=== PATIENT | male | born 1975 | race Caucasian/White ===

== ENCOUNTER 2022-05-13 14:16 | Inpatient (IN) | payer BC ==
--- NOTE | 2022-05-13 15:01 | RAD REPORT ---
EXAM DESCRIPTION: CT - Head Brain Wo Cont - 05/13/2022 2:50 pm CLINICAL HISTORY: Visual disturbance COMPARISON: None. TECHNIQUE: Computed axial tomography of the head was obtained. IV contrast was not requested. All CT scans are performed using dose optimization technique as appropriate and may include automated exposure control or mA/KV adjustment according to patient size. FINDINGS: An intracranial bleed is not seen . The ventricles are normal in caliber. No significant hypodense areas within the brain visualized No extra-axial fluid collection is noted. Fluid within the sinuses/ mastoids is not seen. IMPRESSION: No acute intracranial abnormality is seen. If patient's symptoms persist MRI of the bra in would be recommended.
[2022-05-13] MEDS ORDERED: AMLODIPINE 10 MG TAB ONE (15:09)
[2022-05-13 15:13] LABS: Absolute Lymphocytes (CBC) 1.5 K/uL (0.7-4.9); Lymphocytes % 14.1 % (15.3-44.8); MCV 87.9 fL (80-100); RBC Red Blood Cell Count 5.12 M/uL (4.33-5.43)
[2022-05-13 15:16] LABS: Protime INR 1.03
[2022-05-13 15:35] LABS: Albumin 3.4 g/dL (3.4-5.0); Bilirubin Direct 0.1 mg/dL (0-0.2); Bilirubin Total 0.6 mg/dL (0.2-1.0); Magnesium 2.2 mg/dL (1.6-2.4); Protein, Total 7.1 g/dL (6.4-8.2)
[2022-05-13 15:37] LABS: Troponin High Sensitivity 82.5 pg/mL (<58.9)
--- NOTE | 2022-05-13 16:14 | ER ---
Nurse's Notes [facility] Name: Clem Amanda Age: 46 yrs Sex: Male : 1975 Arrival Date: 05/13/2022 Time: 14:18 Bed 16 Private MD: Diagnosis: Hypertension with endorgan injury Presentation: 05/13 14:33 Chief complaint: Patient states: he was at the eye dr and was sent here due to high ap3 blood pressure. patient states his blood pressure was 216/140. patient doesn't have a pcp, and hasn't had his blood pressure checked "in years" Patient denies headache, nausea, vomiting. Patient states that 05/07/2022 he started not being able to focus with his eyes, and that is why he was at the eye dr. 14:39 Coronavirus screen: At this time, the client does not indicate any symptoms associated ap3 with coronavirus-19. Ebola Screen: No symptoms or risks identified at this time. Initial Sepsis Screen: Does the patient meet any 2 criteria? No. Patient's initial sepsis screen is negative. Does the patient have a suspected source of infection? No. Patient's initial sepsis screen is negative. Risk Assessment: Do you want to hurt yourself or someone else? Patient reports no desire to harm self or others. Onset of symptoms was May 07, 2022. 14:39 Acuity: CHANCE 2 ap3 14:39 Method Of Arrival: Ambulatory ap3 Triage Assessment: 14:40 General: Appears in no apparent distress. Behavior is calm, cooperative, appropriate ap3 for age. Pain: Denies pain. EENT: Reports changes in vision. not being able to focus. Neuro: Level of Consciousness is awake, alert, obeys commands, Oriented to person, place, time, situation, Moves all extremities. Gait is steady, Speech is normal. Cardiovascular: Patient's skin is warm and dry. Respiratory: Airway is patent Respiratory effort is even, unlabored, Respiratory pattern is regular, symmetrical. Historical: - Allergies: 14:39 No Known Allergies; ap3 - Home Meds: 14:39 None [Active]; ap3 - PMHx: 14:39 None; ap3 - Immunization history:: Client reports having NOT received the Covid vaccine. - Social history:: Smoking status: Patient denies any tobacco usage or history of. Screenin:41 Abuse screen: Denies threats or abuse. Nutritional screening: No deficits noted. ap3 Tuberculosis screening: No symptoms or risk factors identified. 14:41 [facility] ED Fall Risk Assessment (Adult) History of falling in the last 3 months, ap3 including since admission No falls in past 3 months (0 pts). Assessment: 15:16 General: Appears in no apparent distress. comfortable, Behavior is calm, cooperative, ko1 appropriate for age. Pain: Denies pain. Neuro: No deficits noted. Cardiovascular: Parent/caregiver reports patient has had high blood pressure. Respiratory: No deficits noted. GI: No deficits noted. : No deficits noted. EENT: No deficits noted. Derm: No deficits noted. Musculoskeletal: No deficits noted. 19:00 General: Appears in no apparent distress. comfortable, obese, well groomed, well pf1 developed, Behavior is calm, cooperative, appropriate for age, quiet. 19:00 General: Patient stated went to the eye doctor today and was sent to the ER due to pf1 elevated BP,onset today.. Pain: Denies pain. Neuro: No deficits noted. Level of Consciousness is awake, alert, obeys commands, Oriented to person, place, time, situation. Cardiovascular: No deficits noted. Capillary refill < 3 seconds. Respiratory: No deficits noted. Airway is patent Respiratory effort is even, unlabored, Respiratory pattern is regular, symmetrical. GI: No deficits noted. No signs and/or symptoms were reported involving the gastrointestinal system. : No deficits noted. No signs and/or symptoms were reported regarding the genitourinary system. EENT: No deficits noted. No signs and/or symptoms were reported regarding the EENT system. Derm: No deficits noted. No signs and/or symptoms reported regarding the dermatologic system. Musculoskeletal: No deficits noted. No signs and/or symptoms reported regarding the musculoskeletal system. Vital Signs: 14:33 BP 227 / 131; Pulse 87; Temp 98.8; Pulse Ox 97% ; Height 6 ft. 4 in. (193.04 cm); ap3 14:40 Weight 162.9 kg; ap3 15:13 BP 227 / 128; Pulse 79; Resp 18; Pulse Ox 95% on R/A; ko1 15:19 BP 216 / 127; Pulse 82; Pulse Ox 96% ; ko1 16:55 BP 226 / 131; Pulse 82; Pulse Ox 98% on R/A; ko1 17:00 BP 228 / 126; Pulse 74; Pulse Ox 97% ; ko1 17:15 BP 195 / 126; Pulse 77; Pulse Ox 99% ; ko1 17:20 BP 221 / 128; ko1 18:15 BP 202 / 105; Pulse 86; ko1 18:30 BP 191 / 106; Pulse 87; Pulse Ox 97% ; ko1 18:45 BP 185 / 107; Pulse 85; Pulse Ox 99% on R/A; ko1 18:55 BP 185 / 107; ko1 19:10 BP 198 / 104; pf1 14:40 Body Mass Index 43.71 (162.90 kg, 193.04 cm) ap3 17:00 started cardene 5mg/hr ko1 17:20 increased cardene to 7.5 mg/hr ko1 18:15 increased cardene to 10mg/hr ko1 18:45 increased cardene to 12.5mg/hr ko1 19:10 increased cardene to 15mg/hr pf1 ED Course: 14:18 Patient arrived in ED. rg4 14:29 Toñito Landrum PA is PHCP. jmm 14:29 Gibson Michael MD is Attending Physician. jmm 14:39 Triage completed. ap3 14:40 Shawanda Dougherty, RN is Primary Nurse. ko1 14:41 Arm band placed on right wrist. ap3 14:[address] via stretcher. ko1 14:45 Patient has correct armband on for positive identification. Bed in low position. Call ko1 light in reach. Side rails up X 1. Client placed on continuous cardiac and pulse oximetry monitoring. NIBP monitoring applied. patient monitor on. 14:51 CT Head Brain wo Cont In Process Unspecified. EDMS 14:[address]. ko1 15:00 Inserted saline lock: 20 gauge in left antecubital area, using aseptic technique. Blood ko1 collected. 15:04 Basic Metabolic Panel Sent. ko1 15:04 CBC with Diff Sent. ko1 15:04 LFT's Sent. ko1 15:04 Magnesium Sent. ko1 15:04 NT PRO-BNP Sent. ko1 15:04 PT-INR Sent. ko1 15:04 Troponin HS Sent. ko1 15:16 No provider procedures requiring assistance completed. ko1 16:12 Tyson Ramos MD is Hospitalizing Provider. alexm Administered Medications: 15:09 Drug: Norvasc (amlodipine) 10 mg Route: PO; ko1 17:00 Drug: niCARdipine 5 mg/hr Route: IV; Rate: calculated rate; Site: left antecubital; ko1 17:48 Follow up: Response: Blood pressure is unchanged; Rate change 7.5 mg/hr ko1 18:33 Follow up: Response: Blood pressure is lowered; Rate change 10 mg/hr ko1 18:55 Follow up: BP 185 / 107; Rate change 12.5 mg/hr ko1 19:15 Follow up: Rate change 15 mg/hr pf1 Medication: 15:16 VIS not applicable for this client. ko1 Outcome: 16:13 Decision to Hospitalize by Provider. everardo 05/14 21:46 Patient left the ED. aa9 Signatures: Dispatcher [employer] EDMS Toñito Landrum PA PA jm Charity Stiles rg4 Amairani Barr RN RN ap3 Louise Lezama RN RN aa9 Shawanda Dougherty, RN RN ko1 Gabi isaac, SAL RN pf1 Corrections: (The following items were deleted from the chart) 05/13 18:59 17:00 BP 228 / 126; Pulse 74bpm; Pulse Ox 97%; ko1 ko1 18:59 17:20 BP 221 / 128; ko1 ko1 18:59 18:15 BP 202 / 105; Pulse 86bpm; ko1 ko1
--- NOTE | 2022-05-13 16:14 | EDPHYS ---
Physician Documentation [facility] Name: Clem Amanda Age: 46 yrs Sex: Male : 1975 Arrival Date: 05/13/2022 Time: 14:18 Bed 16 Private MD: ED Physician Gibson Michael HPI: 05/13 14:36 This 46 yrs old Male presents to ER via Ambulatory with complaints of High Blood jmm Pressure. 14:36 Onset: The symptoms/episode began/occurred at an unknown time. Modifying factors: The jmm symptoms are aggravated by activity, The symptoms are alleviated by. Is a 46-year-old male with no known chronic medical conditions presents emerged part with complaints of elevated blood pressure which was measured in clinic today. Patient was seen by ophthalmology involved to go to the ED for further evaluation. Patient denies chest pain, headache, shortness of breath.. Historical: - Allergies: 14:39 No Known Allergies; ap3 - Home Meds: 14:39 None [Active]; ap3 - PMHx: 14:39 None; ap3 - Immunization history:: Client reports having NOT received the Covid vaccine. - Social history:: Smoking status: Patient denies any tobacco usage or history of. ROS: 14:36 Constitutional: Negative for fever, chills, and weight loss, Cardiovascular: Negative jmm for chest pain, palpitations, and edema, Respiratory: Negative for shortness of breath, cough, wheezing, and pleuritic chest pain. 14:36 All other systems are negative. Exam: 14:36 Constitutional: This is a well developed, well nourished patient who is awake, alert, jmm and in no acute distress. Head/Face: atraumatic. Eyes: EOMI, no conjunctival erythema appreciated ENT: Moist Mucus Membranes Neck: Trachea midline, Supple Chest/axilla: Normal chest wall appearance and motion. Cardiovascular: Regular rate and rhythm. No edema appreciated Respiratory: Normal respirations, no respiratory distress appreciated Abdomen/GI: Non distended Back: Normal ROM Skin: General appearance color normal MS/ Extremity: Moves all extremities, no obvious deformities appreciated, no edema noted to the lower extremities Neuro: Awake and alert Psych: Behavior is normal, Mood is normal, Patient is cooperative and pleasant Vital Signs: 14:33 BP 227 / 131; Pulse 87; Temp 98.8; Pulse Ox 97% ; Height 6 ft. 4 in. (193.04 cm); ap3 14:40 Weight 162.9 kg; ap3 15:13 BP 227 / 128; Pulse 79; Resp 18; Pulse Ox 95% on R/A; ko1 15:19 BP 216 / 127; Pulse 82; Pulse Ox 96% ; ko1 16:55 BP 226 / 131; Pulse 82; Pulse Ox 98% on R/A; ko1 17:00 BP 228 / 126; Pulse 74; Pulse Ox 97% ; ko1 17:15 BP 195 / 126; Pulse 77; Pulse Ox 99% ; ko1 17:20 BP 221 / 128; ko1 18:15 BP 202 / 105; Pulse 86; ko1 18:30 BP 191 / 106; Pulse 87; Pulse Ox 97% ; ko1 18:45 BP 185 / 107; Pulse 85; Pulse Ox 99% on R/A; ko1 18:55 BP 185 / 107; ko1 19:10 BP 198 / 104; pf1 14:40 Body Mass Index 43.71 (162.90 kg, 193.04 cm) ap3 17:00 started cardene 5mg/hr ko1 17:20 increased cardene to 7.5 mg/hr ko1 18:15 increased cardene to 10mg/hr ko1 18:45 increased cardene to 12.5mg/hr ko1 19:10 increased cardene to 15mg/hr pf1 MDM: 14:36 Patient medically screened. hitesh 16:11 Data reviewed: vital signs, nurses notes. Counseling: I had a detailed discussion with [facility] the patient and/or guardian regarding: the historical points, exam findings, and any diagnostic results supporting the discharge/admit diagnosis, lab results, radiology results, the need for further work-up and treatment in the hospital. ED course: I discussed the patient with ROHINI Palacios, whom accepted the patient to Dr. Ramos's service. . 05/13 14:39 Order name: Basic Metabolic Panel; Complete Time: 15:39 [facility] 05/13 14:39 Order name: CBC with Diff; Complete Time: 15:23 [facility] 05/13 14:39 Order name: LFT's; Complete Time: 15:39 [facility] 05/13 14:39 Order name: Magnesium; Complete Time: 15:39 [facility] 05/13 14:39 Order name: NT PRO-BNP; Complete Time: 15:39 jmm 05/13 14:39 Order name: PT-INR; Complete Time: 15:23 jmm 05/13 14:39 Order name: Troponin HS; Complete Time: 15:39 jmm 05/13 16:08 Order name: SARS RAPID; Complete Time: 17:02 jmm 05/13 20:15 Order name: Phosphorus; Complete Time: 09:04 EDMS 05/13 20:15 Order name: Creatine Phosphokinase; Complete Time: 09:04 EDMS 05/13 20:15 Order name: NT PRO-BNP; Complete Time: 09:04 EDMS 05/13 20:15 Order name: T4 Free; Complete Time: 09:04 EDMS 05/13 20:15 Order name: Magnesium; Complete Time: 09:04 EDMS 05/13 20:15 Order name: Thyroid Stimulating Hormone; Complete Time: 09:04 EDMS 05/13 14:39 Order name: EKG; Complete Time: 14:40 m 05/13 14:39 Order name: Cardiac monitoring; Complete Time: 15:04 [facility] 05/13 14:39 Order name: EKG - Nurse/Tech; Complete Time: 15:09 m 05/13 14:39 Order name: IV Saline Lock; Complete Time: 15:03 m 05/13 14:39 Order name: Labs collected and sent; Complete Time: 15:04 m 05/13 14:39 Order name: O2 Per Protocol; Complete Time: 14:41 m 05/13 14:39 Order name: CT Head Brain wo Cont; Complete Time: 15:10 m 05/13 17:21 Order name: CONS Physician Consult EDMS 05/13 20:58 Order name: Troponin High Sensitivity; Complete Time: 09:04 EDMS 05/14 03:02 Order name: CBC with Automated Diff; Complete Time: 09:04 EDMS 05/14 03:18 Order name: Basic Metabolic Panel; Complete Time: 09:04 EDMS 05/14 03:18 Order name: Lipid Profile; Complete Time: 09:04 EDMS 05/14 03:23 Order name: Troponin High Sensitivity; Complete Time: 09:04 EDMS 05/14 09:41 Order name: Troponin High Sensitivity; Complete Time: 09:45 EDMS 05/13 14:39 Order name: O2 Sat Monitoring; Complete Time: 14:42 [facility] 05/13 16:26 Order name: Misc. Order: systolic goal of 160-180; Complete Time: 18:42 [facility] Administered Medications: 15:09 Drug: Norvasc (amlodipine) 10 mg Route: PO; ko1 17:00 Drug: niCARdipine 5 mg/hr Route: IV; Rate: calculated rate; Site: left antecubital; ko1 17:48 Follow up: Response: Blood pressure is unchanged; Rate change 7.5 mg/hr ko1 18:33 Follow up: Response: Blood pressure is lowered; Rate change 10 mg/hr ko1 18:55 Follow up: BP 185 / 107; Rate change 12.5 mg/hr ko1 19:15 Follow up: Rate change 15 mg/hr pf1 Disposition Summary: 05/13/22 16:13 Hospitalization Ordered Hospitalization Status: Inpatient Admission [facility] Provider: Tyson Ramos Condition: Stable [facility] Problem: new [facility] Symptoms: are unchanged [facility] Bed/Room Type: [facility] Location: Intensive Care Unit(05/14/22 20:36) Room Assignment: 3-(05/14/22 20:36) cg Diagnosis - Hypertension with endorgan injury [facility] Forms: - Medication Reconciliation Form [facility] - SBAR form [facility] Signatures: Dispatcher [employer] EDGibson Hays MD MD cha Mickail, Joel, PA PA [facility] Earnestine Stiles, RN Amairani Crews RN SAL [email or web address] Aurora Lay RN RN eb1 Shawanda Dougherty RN RN Gabi arias RN pf1 Corrections: (The following items were deleted from the chart) 16:24 16:22 Misc. Order ordered. [facility] 16:25 16:13 Telemetry/MedSurg (Inpatient) [facility] 16:25 16:13 [facility] 17:53 14:36 Is a 46-year-old male with no known chronic medical conditions presents emerged [facility] with complaints of elevated blood pressure which was measured in clinic today. Patient was seen by ophthalmology involved to go to the ED for further evaluation. Patient has chest pain, headache, shortness of breath.. [facility] 22:19 16:25 Intensive Care Unit jmm eb1 22:19 16:25 jmm eb1 05/14 20:36 04 22:19 [facility] ER [facility] eb1 cg 05/14 20:36 05[facility]13 [facility]
[2022-05-13] MEDS ORDERED: Nicardipine/NS 25 MG/250 ML KIT IV ONE ×2 (16:56→21:34)
[2022-05-13 17:01] LABS: SARS-CoV-2 Antigen Rapid Res Negative (Negative)
[2022-05-13] MEDS ORDERED: ACETAMINOPHEN 325 MG TABLET PO PRN (17:19)
[2022-05-13] MEDS ORDERED: HYDROCODONE/APAP 5/325 MG TAB PO PRN (17:19)
[2022-05-13] MEDS ORDERED: ONDANSETRON 4 MG/2 ML VIAL IV PRN (17:29)
--- NOTE | 2022-05-13 17:35 | P.HP ---
Certification for Inpatient Patient History Date of Service: 05/14/22 Reason for admission: Elevated blood pressure History of Present Illness: Patient is a 46-year-old male with a past medical history significant for diabetes who presents with complaint of elevated blood pressure. Patient reported that he went to see his network contract manager due to blurry vision and when his blood pressure was checked his SBP was noted to be in the 200s. Patient was instructed to come to the ER. Patient denies any other signs and symptoms. Symptoms are aggravated or relieved by nothing. Patient decided to present to the ER as directed - Past Medical/Surgical History -: Obesity Past Surgical History: Reviewed- Non-Contributory - Social History Smoking Status: Never smoker Alcohol use: Yes CD- Drugs: No Caffeine use: No Place of Residence: Home <SpikeninaDarci suarezcaridad Suarez - Last Filed: 05/14/22 02:33> Date of Service: 05/14/22 <Tyson Ramos - Last Filed: 05/14/22 17:07> Allergies No Known Allergies Allergy (Verified 05/13/22 17:40) Review of Systems General: Unremarkable Eyes: Other (Blurry Vision ) ENT: Unremarkable Respiratory: Unremarkable Cardiovascular: Unremarkable Gastrointestinal: Unremarkable Genitourinary: Unremarkable Musculoskeletal: Unremarkable Integumentary: Unremarkable Neurological: Unremarkable Lymphatics: Unremarkable <SpikeninaMichel suarez Erick - Last Filed: 05/14/22 02:33> Physical Examination - Physical Exam General: Alert, In no apparent distress, Oriented x3, Cooperative HEENT: Atraumatic, PERRLA, Mucous membr. moist/pink, EOMI, Sclerae nonicteric Neck: Supple, 2+ carotid pulse no bruit, No LAD, Without JVD or thyroid abnormality Respiratory: Clear to auscultation bilaterally, Normal air movement Cardiovascular: No edema, Regular rate/rhythm, Normal S1 S2 Capillary refill: <2 Seconds Gastrointestinal: Normal bowel sounds, Soft and benign, No tenderness Musculoskeletal: No clubbing, No contractures, No tenderness Integumentary: No rashes, No significant lesion, No tenderness/swelling Neurological: Normal speech, Normal tone, Normal affect Lymphatics: No axilla or inguinal lymphadenopathy - Studies Laboratory Data (last 24 hrs) 05/13/22 15:00: PT 11.3, INR 1.03 05/13/22 15:00: WBC 10.90, Hgb 15.6, Hct 45.0, Plt Count 140 L 05/13/22 15:00: Sodium 140, Potassium 4.0, BUN 34 H, Creatinine 1.60 H, Glucose 190 H, Magnesium 2.2, Total Bilirubin 0.6, AST 24, ALT 45, Alkaline Phosphatase 82 <Michel Quinn - Last Filed: 05/14/22 02:33> - Studies Laboratory Data (last 24 hrs) 05/14/22 02:20: Sodium 140, Potassium 3.8, BUN 29 H, Creatinine 1.42 H, Glucose 134 H, Triglycerides 99, Cholesterol 193, HDL Cholesterol 39 L, Cholesterol/HDL Ratio 4.95 05/14/22 02:20: WBC 10.90, Hgb 14.8, Hct 43.1, Plt Count 138 L 05/13/22 19:39: Phosphorus 2.7, Magnesium 2.4 <Tyson Ramos - Last Filed: 05/14/22 17:07> Assessment and Plan - Plan --Hypertensive emergency. Patient started on nicardipine drip. Cardiology consulted. Echocardiogram pending. Telemetry to monitor for any significant arrhythmia. We will await further recommendation from assistant housekeeping manager. -- Elevated troponin. We will trend troponin levels. Joint Sealer on board. Telemetry to monitor for any significant arrhythmia. --Elevated BNP. Echocardiogram pending to assess cardiac structures and functions. Further management per assistant housekeeping manager. --CKD 3A. Baseline functions unknown. We will continue to monitor renal functions. --Class III obesity. Likely secondary to excess calories intake. Patient counseled on weight reduction, diet and exercise therapy. --DVT prophylaxis with Lovenox subQ. Discharge Plan: Home - Advance Directives Does patient have a Living Will: No Does patient have a Durable POA for Healthcare: No - Code Status/Comfort Care Code Status Assessed: Yes Physician Review: Patient Assessed, Agree with Above Assessment and Plan Critical Care: No <Michel Quinn - Last Filed: 05/14/22 02:33> Physician Review: Patient Assessed, Agree with Above Assessment and Plan <Tyson Ramos - Last Filed: 05/14/22 17:07>
[2022-05-13] MEDS ORDERED: ASPIRIN 81 MG CHEWABLE TABLET PO ONE (18:00)
[2022-05-13] MEDS ORDERED: Nicardipine in Saline, Iso-Osm 20 MG/200 ML IV.SOLN. IV SCH (18:00)
[2022-05-13] MEDS: NICARDIPINE HCL 25 MG in NA CHLORIDE 0.9% 240 ML IV PRN (19:00)
[2022-05-13 20:15] LABS: Magnesium 2.4 mg/dL (1.6-2.4); Phosphorus 2.7 mg/dL (2.5-4.9); Thyroid Stimulating Hormone 2.33 uIU/mL (0.358-3.740)
[2022-05-13] MEDS: ENOXAPARIN 40 MG/0.4 ML SQ SCH (21:00)
[2022-05-13] MEDS ORDERED: carvediloL 6.25 MG TAB PO SCH ×2 (21:20→22:30)
[2022-05-13] MEDS ORDERED: carvediloL 6.25 MG TAB ONE (21:33)
[2022-05-13] MEDS ORDERED: ENOXAPARIN 40 MG/0.4 ML SQ ONE (21:34)
[2022-05-13] MEDS ORDERED: carvediloL 6.25 MG TAB PO ONE (21:46)
[2022-05-14] MEDS ORDERED: Nicardipine/NS 25 MG/250 ML KIT IV ONE ×6 (02:02→22:38)
[2022-05-14 03:00] LABS: Absolute Lymphocytes (CBC) 1.9 K/uL (0.7-4.9); Hematocrit 43.1 % (39.6-49.0); Lymphocytes % 17.1 % (15.3-44.8); MCV 88.2 fL (80-100); MPV 7.9 fL (7.6-11.3); RBC Red Blood Cell Count 4.89 M/uL (4.33-5.43)
[2022-05-14 03:18] LABS: Potassium 3.8 mmol/L (3.5-5.1)
[2022-05-14] MEDS: carvediloL 12.5 MG TAB PO SCH ×2 (08:00→16:18)
[2022-05-14] MEDS: NICARDIPINE HCL 25 MG in NA CHLORIDE 0.9% 240 ML IV PRN ×4 (08:30→23:10)
[2022-05-14] MEDS ORDERED: carvediloL 6.25 MG TAB ONE ×2 (08:32→16:20)
[2022-05-14] MEDS ORDERED: ASPIRIN 81 MG CHEWABLE TABLET ONE (08:32)
[2022-05-14] MEDS ORDERED: ENOXAPARIN 40 MG/0.4 ML SQ ONE (08:32)
[2022-05-14] MEDS: ASPIRIN 81 MG CHEWABLE TABLET PO SCH (08:57)
[2022-05-14] MEDS: ENOXAPARIN 40 MG/0.4 ML SQ SCH (08:57)
[2022-05-14] MEDS ORDERED: INFLUENZA VACCINE (for 6+ mo) 0.5 ML DOSE IMVAC ONE (09:00)
[2022-05-14] MEDS: AMLODIPINE 5 MG TAB PO SCH (12:26)
[2022-05-14] MEDS ORDERED: AMLODIPINE 5 MG TAB ONE (12:32)
--- NOTE | 2022-05-14 15:23 | EKG ---
Test Date: 2022-05-13 Test Time: 15:13:17 Fire Tender: SHARMIN MEASUREMENT RESULTS: Intervals: Rate: 79 DC: 176 QRSD: 98 QT: 396 QTc: 454 [place]: P: 53 DC: 176 QRS: 63 T: 193 INTERPRETIVE STATEMENTS: Normal sinus rhythm T wave abnormality, consider inferolateral ischemia Abnormal ECG No previous ECG available for comparison Electronically Signed On 05-14-22 15:21:20 ASPHALT PAVER OPERATOR by Venu Webster
--- NOTE | 2022-05-14 15:23 | EKG ---
Test Date: 2022-05-13 Test Time: 15:13:49 Garage Helper: SHARMIN MEASUREMENT RESULTS: Intervals: Rate: 81 NE: 176 QRSD: 100 QT: 394 QTc: 457 [place]: P: 61 NE: 176 QRS: 56 T: 195 INTERPRETIVE STATEMENTS: Normal sinus rhythm T wave abnormality, consider inferolateral ischemia Abnormal ECG Compared to ECG 05/13/2022 15:13:17 No significant changes Electronically Signed On 05-14-22 15:21:14 PRESCHOOL TEACHER AIDE by Venu Webster
--- NOTE | 2022-05-14 17:15 | P.PN ---
Subjective Date of Service: 05/14/22 Chief Complaint: Elevated blood pressure No acute events overnight. He was started on carvedilol and amlodipine, and his nicardipine drip is being down-titrated. He reports that he feels well overall. He reports that he has had blurry vision in his right eye. He saw his staff respiratory therapist yesterday, who reportedly told him that he has hypertensive retinopathy and has had a hemorrhage next to his optic disc. He denies any headaches or chest pain. Review of Systems 10-point ROS is otherwise unremarkable Eyes: Vision Change (right-eye ) Physical Examination - Vital Signs Temperature: 97 F Blood Pressure: 163/86 Pulse: 63 Respirations: 16 Pulse Ox (%): 98 - Physical Exam General: Alert, In no apparent distress, Oriented x3 HEENT: Atraumatic, Mucous membr. moist/pink, EOMI, Sclerae nonicteric Neck: JVD not distended Respiratory: Clear to auscultation bilaterally, Normal air movement Cardiovascular: No edema, Regular rate/rhythm, Normal S1 S2, No gallops, No rubs, No murmurs Gastrointestinal: Normal bowel sounds, Soft and benign, Non-distended, No tenderness, No rebound, No guarding Musculoskeletal: No clubbing Integumentary: No rashes Neurological: Normal speech, Cranial nerves 3-12 intact, Normal affect - Studies Laboratory Data (last 24 hrs) 05/14/22 02:20: Sodium 140, Potassium 3.8, BUN 29 H, Creatinine 1.42 H, Glucose 134 H, Triglycerides 99, Cholesterol 193, HDL Cholesterol 39 L, Cholesterol/HDL Ratio 4.95 05/14/22 02:20: WBC 10.90, Hgb 14.8, Hct 43.1, Plt Count 138 L 05/13/22 19:39: Phosphorus 2.7, Magnesium 2.4 Assessment And Plan - Plan # Hypertensive Emergency # 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 If patient's symptoms persist MRI of the brain would be recommended." - Consulted Cardiology and spoke with Dr. Webster - recommendations appreciated - Started on nicardipine drip with goal to reduce blood pressure ~20% every 24 hours - Started on carvedilol + amlodipine - titrate nicardipine as able # Suspected Type II Non-ST Segment Elevation Myocardial Infarction (Demand Ischemia) due to above - Evaluation thus far: - EKG: without reported STEMI criteria, trend - Serial troponin: 82.5 -> 98.2 -> 126.8 -> 79.9 - Ordered transthoracic echocardiogram - Management plan: - Consult Cardiology and spoke with Dr. Webster - recommendations appreciated - Recommends blood pressure control as outlined above # Suspected Acute Kidney Injury - Creatinine = 1.60 -> 1.42 (baseline creatinine unknown) - Urinalysis = pending - Monitor creatinine and urine output - If worsening, obtain renal ultrasound - Renally dose medications # Dyslipidemia - Started atorvastatin 10 mg qHS # Hyperglycemia # Morbid Obesity - BMI 43.7 kg/m2 - Ordered Hgb A1c - Lifestyle modifications Tyson Ramos M.D.
[2022-05-14] MEDS ORDERED: ACETAMINOPHEN 325 MG TABLET ONE (17:23)
--- NOTE | 2022-05-14 19:35 | CON ---
Date of Consultation: 05/14/2022 Reason For Consultation: Elevated blood pressure and hypertensive emergency. History Of Present Illness: This is a 46-year-old male with history of diabetes and hypertension who was not on medications. He was on medicines in the past and he lost weight, so stopped all medicati ons. He was sent by the flight line mechanic due to blurry vision. He was found to have bleeding on eye exam due to the hypertension. Blood pressure was above 200 systolic upon arrival. He has no symptom s as per report. Past Medical History: Diabetes, hypertension, obesity, and obstructive sleep apnea. Medications: Refer to reconciliation sheet for detailed list. Allergies: NO KNOWN DRUG ALLERGIES. Family History: No premature coronary artery disease or cancer. Social History: He does not smoke or drink. Does not use any drugs. Review of Systems: All systems reviewed and they were negative except for what is mentioned in HPI. Physical Examination: Vital Signs: Reviewed. Head And Neck: Pupils are equal and reactive to light. Intact eye movements. No JVD. No cervical lymphadenopathy. Neck is supple. Thyroid is not enlarged. Lungs: Clear to auscultation bilaterally. No rhonchi, wheezing, or crackles. No accessory muscle u se. Heart: Regular rate and rhythm. No extra sounds. Abdomen: Soft, nontender. Bowel sounds positive. No organomegaly. No masses or hernia. No rigidi ty or rebound. Extremities: 1+ edema bilaterally. No clubbing or cyanosis. Intact pulses. Skin: No rash. Neurologic: Alert, awake, and oriented x3. No acute deficits appreciated. Lymph Nodes: No cervical or axillary lymphadenopathy. Investigations: BUN 29, creatinine 1.42, and troponin peaked at 126 and trending down. Assessment/recommendation: 1.Elevated troponin. This is demand due to his severe hypertension. Recommend aggressive blood pre ssure control. Agree with Norvasc and Coreg and the patient might benefit from diuretics. Re-evalua te his labs tomorrow. If his creatinine continues to be stable, then Lasix will be recommended as th e patient is fluid overloaded. 2.Hypertensive crisis. Blood pressure is improving. Continue current management. Titrate him off the nicardipine slowly while introducing oral medications. 3.Lower extremity edema, probably diastolic congestive heart failure. Await on echocardiogram. SR/MODL Voice ID: [id number] Report ID: [id number]
[2022-05-14] MEDS ORDERED: ATORVASTATIN 20 MG TAB ONE (20:58)
[2022-05-14] MEDS: ATORVASTATIN 10 MG TAB PO SCH (21:00)
[2022-05-14 23:43] LABS: Specific Gravity 1.016 (1.005-1.030); Urine Bacteria <20 /HPF (<20); Urine Bilirubin NEGATIVE (Negative); Urine Blood Negative (Negative); Urine Clarity Clear (Clear); Urine Color Light-Yellow (Yellow); Urine Glucose NEGATIVE (Negative); Urine Mucus Slight /HPF (None Seen); Urine Protein 2+ (Negative); Urine RBC <5 /HPF (None Seen); Urine Urobilinogen Normal (Normal); Urine WBC Clump Rare /HPF (None Seen)
[2022-05-15] MEDS ORDERED: Nicardipine/NS 25 MG/250 ML KIT IV ONE (02:04)
[2022-05-15 05:23] LABS: Potassium 3.8 mmol/L (3.5-5.1)
--- NOTE | 2022-05-15 06:54 | ECHO ---
HEIGHT: 6 ft 4 in WEIGHT: 359 lb 0 oz DATE OF STUDY: 05/14/[address]: Michel Quinn 2-DIMENSIONAL: YES M.MODE: YES DOPPLER: YES COLOR FLOW: YES TDS: PORTABLE: YES DEFINITY: BUBBLE STUDY: DIAGNOSIS: HYPERTENSION EMERGENCY CARDIAC HISTORY: CATHERIZATION: SURGERY: PROSTHETIC VALVE: PACEMAKER: MEASUREMENTS (cm) DIASTOLIC (NORMALS) SYSTOLIC (NORMALS) IVSd 1.9 (0.6-1.2) LA Diam 5.7 (1.9-4.0) LVEF 62% LVIDd 5.3 (3.5-5.7) LVIDs 3.5 (2.0-3.5) %FS 34% LVPWd 1.9 (0.6-1.2) Ao Diam 3.1 (2.0-3.7) 2 DIMENSIONAL ASSESSMENT: RIGHT ATRIUM: NORMAL LEFT ATRIUM: ENLARGED RIGHT VENTRICLE: NORMAL LEFT VENTRICLE: LEFT VENTRICULAR HYPERTROPHY TRICUSPID VALVE: MILD TRICUSPID REGURGITATION MITRAL VALVE: MILD MITRAL REGURGITATION PULMONIC VALVE: NORMAL AORTIC VALVE: MILD AORTIC INSUFFICIENCY PERICARDIAL EFFUSION: NONE AORTIC ROOT: NORMAL LEFT VENTRICULAR WALL MOTION: NORMAL DOPPLER/COLOR FLOW: SEE BELOW COMMENTS: 1. NORMAL LEFT VENTRICULAR EJECTION FRACTION 55-60% 2. NORMAL WALL MOTION 3. SEVERE LEFT ATRIAL ENLARGEMENT 4. MODERATE CONCENTRIC LEFT VENTRICULAR HYPERTROPHY 5. MODERATE DIASTOLIC DYSFUNCTION 6. PULMONARY HYPERTENSION WITH RIGHT VENTRICULAR SYSTOLIC PRESSURE OF 50-55 mmHg TECHNOLOGIST: FARIDEH GORDON
[2022-05-15] MEDS: NICARDIPINE HCL 25 MG in NA CHLORIDE 0.9% 240 ML IV PRN ×3 (07:24→22:05)
[2022-05-15] MEDS: carvediloL 12.5 MG TAB PO SCH ×2 (07:27→16:09)
[2022-05-15] MEDS: ENOXAPARIN 40 MG/0.4 ML SQ SCH (07:28)
[2022-05-15] MEDS: ASPIRIN 81 MG CHEWABLE TABLET PO SCH (07:28)
[2022-05-15] MEDS: AMLODIPINE 5 MG TAB PO SCH (07:28)
[2022-05-15] MEDS ORDERED: AMLODIPINE 5 MG TAB PO ONE (10:07)
[2022-05-15] MEDS: HYDRALAZINE HCL 25 MG TABLET PO SCH ×3 (10:20→20:23)
--- NOTE | 2022-05-15 13:02 | P.PN ---
Subjective Date of Service: 05/15/22 Chief Complaint: Elevated blood pressure No acute events overnight. His nicardipine drip is being down-titrated. He reports that he feels well overall. He reports that his right eye vision is gradually improving. His is currently on amlodipine + carvedilol. Will increase amlodipine dose and add hydralazine. He denies any headaches or chest pain. Review of Systems 10-point ROS is otherwise unremarkable Eyes: Vision Change Physical Examination - Vital Signs Temperature: 97.5 F Blood Pressure: 149/94 Pulse: 67 Respirations: 13 Pulse Ox (%): 96 Assessment And Plan - Plan - Physical Exam General: Alert, In no apparent distress, Oriented x3 HEENT: Atraumatic, Mucous membr. 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 If patient's symptoms persist MRI of the brain would be recommended." - Consulted Cardiology and spoke with Dr. Webster - recommendations appreciated - Wean nicardipine drip to SBP < 160 mmHg. Goal BP today is SBP 140-160 mmHg, without nicardipine drip - Continue carvedilol 12.5 mg PO BID - Increased amlodipine from 5 mg to 10 mg daily - Started hydralazine 25 mg PO TID # Suspected Type II Non-ST Segment Elevation Myocardial Infarction (Demand Ischemia) due to above # Moderate Diastolic Dysfunction complicated by Moderate Pulmonary Hypertension - Evaluation thus far: - EKG: without reported STEMI criteria, trend - Serial troponin: 82.5 -> 98.2 -> 126.8 -> 79.9 - Ordered transthoracic echocardiogram = "1. normal left ventricular ejection fraction 55-60% 2. normal wall motion 3. severe left atrial enlargement 4. moderate concentric left ventricular hypertrophy 5. moderate diastolic dysfunction 6. pulmonary hypertension with right ventricular systolic pressure of 50-55 mmHg" - Management plan: - Consult Cardiology and spoke with Dr. Webster - recommendations appreciated - Recommends blood pressure control as outlined above - Plan to start furosemide tomorrow if creatinine allows # Suspected Acute Kidney Injury on Chronic Kidney Disease Stage III (due to Hypertensive Nephropathy) - Creatinine = 1.60 -> 1.42 -> 1.40 (baseline creatinine unknown) - Urinalysis = 2+ protein - Monitor creatinine and urine output - If worsening, obtain renal ultrasound - Renally dose medications # Dyslipidemia - Started atorvastatin 10 mg qHS # Prediabetes # Morbid Obesity - BMI 43.7 kg/m2 - Hgb A1c = 5.9 % - Lifestyle modifications Tyson Ramos M.D.
--- NOTE | 2022-05-15 19:32 | PN ---
Date of Progress Note: 05/15/2022 Subjective: Seen by bedside. Blood pressure is improving. Continues to require IV drip for blood p ressure control. Review of Systems: There is no chest pain, shortness of breath, orthopnea, cough, nausea, vomiting, diarrhea. No abdomi nal pain. No dysuria, polyuria, or urgency. All other systems reviewed and they are negative. Physical Examination: Vital Signs: Temperature is 97.5, pulse 67, breathing at 13, blood pressure is 149/94, saturating 96 %. General: Pleasant middle-aged male, in no apparent distress. Head and Neck: Pupils are equal, reactive to light. Intact eye movements. No JVD. No cervical lym phadenopathy. Neck is supple. Thyroid is not enlarged. Lungs: Clear to auscultation bilaterally. No rhonchi, rales, or crackles. No accessory muscle use. Heart: Rate and rhythm. No extra sounds. Abdomen: Soft, nontender. Bowel sounds positive. No organomegaly. No masses or hernia. No rigidi ty or rebound. Extremities: No edema, clubbing, cyanosis. Intact pulses. Skin: No rashes. Neurologic: Alert, awake, and oriented x3. No acute focal deficits appreciated. Investigations: BUN 74, creatinine 1.4. Last troponin was 79. Hemoglobin is 14.8. Assessment And Recommendation: 1.Hypertensive crisis, improving. Hydralazine was introduced today. He is on max dose of Coreg and Norvasc. Blood pressure is improving. Tried to wean off the nicardipine drip. 2.Elevated troponin. This is demand ischemia. Has no chest pain. We will plan for exercise stress test as an outpatient once his blood pressure is controlled. SR/MODL Voice ID: [id number] Report ID: [id number]
[2022-05-15] MEDS: ATORVASTATIN 10 MG TAB PO SCH (20:23)
[2022-05-16] MEDS: NICARDIPINE HCL 25 MG in NA CHLORIDE 0.9% 240 ML IV PRN ×4 (02:23→16:20)
[2022-05-16] MEDS ORDERED: Nicardipine/NS 25 MG/250 ML KIT IV ONE (02:23)
[2022-05-16 05:30] LABS: Magnesium 2.3 mg/dL (1.6-2.4); Potassium 3.9 mmol/L (3.5-5.1)
[2022-05-16] MEDS: carvediloL 12.5 MG TAB PO SCH ×2 (07:53→16:22)
[2022-05-16] MEDS: HYDRALAZINE HCL 25 MG TABLET PO SCH ×2 (07:53→13:56)
[2022-05-16] MEDS: ASPIRIN 81 MG CHEWABLE TABLET PO SCH (07:53)
[2022-05-16] MEDS: ENOXAPARIN 40 MG/0.4 ML SQ SCH (07:54)
[2022-05-16] MEDS ORDERED: AMLODIPINE 10 MG TAB PO SCH (09:00)
--- NOTE | 2022-05-16 14:08 | P.CNS ---
Date of Consult: 05/16/22 Reason for Consult: LILIAM/ HTN Requesting Physician: Tyson Ramos Chief Complaint: Elevated blood pressure History of Present Illness: Patient is a 46-year-old male with a past medical history significant for diabet es who presents with complaint of elevated blood pressure. 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 Patient was instructed to come to the ER. Patient denies any other signs and symptoms. Symptoms are aggravated or relieved by nothing. Patient decided to present to the ER as directed. 14:36 This 46 yrs old Male presents to ER via Ambulatory with complaints of High Blood jmm Pressure. 14:36 Onset: The symptoms/episode began/occurred at an unknown time. Modifying factors: The jmm symptoms are aggravated by activity, The symptoms are alleviated by. Is a 46-year-old male with no known chronic medical conditions presents emerged part with complaints of elevated blood pressure which was measured in clinic today. Patient was seen by ophthalmology involved to go to the ED for further evaluation. Patient denies chest pain, headache, shortness of breath. Reports a history of HTN a few years ago that resolved with 100lb weight loss. His maternal grandfather had HTN, DM and a nephrectomy due to renal cancer requiring dialysis near the end of his life. Allergies No Known Allergies Allergy (Verified 05/13/22 17:40) Home medications list reviewed: Yes Home Medications: NK [No Home Meds] 05/15/22 - Past Medical/Surgical History -: HTN with retinopathy -: Diastolic CHF/ LVH -: Pulmonary HTN -: PreDiabetes -: CKD/ Proteinuria (Dr. Manning) - Social History Alcohol use: Yes CD- Drugs: No Caffeine use: No Place of Residence: Home Review of Systems 10-point ROS is otherwise unremarkable Cardiovascular: Edema Physical Examination Temp Pulse Resp BP Pulse Ox 97.3 F 82 15 124/75 92 05/16/22 12:00 05/16/22 13:15 05/16/22 13:15 05/16/22 13:15 05/16/22 13:00 General: Oriented x3, Cooperative HEENT: Normocephalic Neck: Supple Respiratory: Normal air movement Cardiovascular: Regular rate/rhythm, Edema Gastrointestinal: Soft and benign, Non-distended Musculoskeletal: No clubbing, No contractures Integumentary: No rashes, No cyanosis Neurological: Normal speech Blood work reviewed in the chart. Imagings Data: LEFT VENTRICULAR WALL MOTION: NORMAL DOPPLER/COLOR FLOW: SEE BELOW COMMENTS: 1. NORMAL LEFT VENTRICULAR EJECTION FRACTION 55-60% 2. NORMAL WALL MOTION 3. SEVERE LEFT ATRIAL ENLARGEMENT 4. MODERATE CONCENTRIC LEFT VENTRICULAR HYPERTROPHY 5. MODERATE DIASTOLIC DYSFUNCTION 6. PULMONARY HYPERTENSION WITH RIGHT VENTRICULAR SYSTOLIC PRESSURE OF 50-55 mmHg EXAM DESCRIPTION: CT - Head Brain Wo Cont - 05/13/2022 2:50 pm CLINICAL HISTORY: Visual disturbance COMPARISON: None. TECHNIQUE: Computed axial tomography of the head was obtained. IV contrast was not requested. All CT scans are performed using dose optimization technique as appropriate and may include automated exposure control or mA/KV adjustment according to patient size. FINDINGS: An intracranial bleed is not seen . The ventricles are normal in caliber. No significant hypodense areas within the brain visualized No extra-axial fluid collection is noted. Fluid within the sinuses/ mastoids is not seen. IMPRESSION: No acute intracranial abnormality is seen. If patient's symptoms persist MRI of the brain would be recommended. [facility] EXAM DESCRIPTION: US - Abdomen Pelvis Scan US - 05/16/2022 4:48 pm CLINICAL HISTORY: High blood pressure r/o JS/CKD COMPARISON: No comparisons FINDINGS: The bilateral kidneys are normal in size, the right measuring 12.9 cm and the left measuring 11.8 cm. Aortic velocity: 59 cm/second Right proximal renal artery: 33 cm/second Right mid renal artery: 37 cm/second Right distal renal artery: 37 cm/second Right renal arcuate artery resistive index: 0.9 Right renal artery / aorta ratio: 1 Left proximal renal artery: 58 cm/second Left mid renal artery: 58 cm/second Left distal renal artery: 3.4 cm/second Left renal arcuate artery resistive index: 0.7 Left renal artery/aorta ratio: 1 Normal waveforms demonstrated within the bilateral renal arteries. IMPRESSION: No evidence of hemodynamically significant stenosis within the bilateral renal arteries. Conclusions/Impression: Stage I LILIAM in the setting of Hypertensive Emergency CKD II? with proteinuria (CKD baseline is unclear) -No NSAIDs -Start Ramipril and Chlorthalidone Hypertensive Emergency HTN with CHF/ CKD -Start Ramipril 10mg daily -Start Chlorthalidone 25mg Daily -Change Amlodipine to Nifedipine ER 60mg BID -Consider outpt evaluation for SABRINA Diastolic CHF in the setting of LVH, chronic Severe left atrial enlargement Pulmonary HTN -Bumex 1mg X1 -Start Chlorthalidone 25mg daily PreDiabetes A1C 5.9 Morbid Obesity -No sugar diet Thrombocytopenia -Monitor CBC Case reviewed with Dr. Ramos Thank you kindly for the consultation
[2022-05-16] MEDS: ramipriL 5 MG CAP PO SCH (15:46)
[2022-05-16] MEDS: CHLORTHALIDONE 25 MG TAB PO SCH (15:46)
[2022-05-16] MEDS ORDERED: BUMETANIDE 1 MG TABLET PO ONE (16:00)
--- NOTE | 2022-05-16 17:12 | RAD REPORT ---
EXAM DESCRIPTION: US - Abdomen Pelvis Scan US - 05/16/2022 4:48 pm CLINICAL HISTORY: High blood pressure r/o JS/CKD COMPARISON: No comparisons FINDINGS: The bilateral kidneys are normal in size, the right measuring 12.9 cm and the left measuri ng 11.8 cm. Aortic velocity: 59 cm/second Right proximal renal artery: 33 cm/second Right mid renal artery: 37 cm/second Right distal renal artery: 37 cm/second Right renal arcuate artery resistive index: 0.9 Right renal artery / aorta ratio: 1 Left proximal renal artery: 58 cm/second Left mid renal artery: 58 cm/second Left distal renal artery: 3.4 cm/second Left renal arcuate artery resistive index: 0.7 Left renal artery/aorta ratio: 1 Normal waveforms demonstrated within the bilateral renal arteries. IMPRESSION: No evidence of hemodynamically significant stenosis within the bilateral renal arteries.
--- NOTE | 2022-05-16 18:34 | P.PN ---
Subjective Date of Service: 05/16/22 Chief Complaint: Elevated blood pressure No acute events overnight. His nicardipine drip is being down-titrated, currently at 5 mg/hr. He reports that he feels well overall. He reports that his right eye vision is gradually improving. He denies any headaches or chest pain. His hypertension is persistent despite multiple therapies, will obtained Nephrology consultation. Review of Systems 10-point ROS is otherwise unremarkable Eyes: Vision Change (right eye) Physical Examination - Vital Signs Temperature: 97 F Blood Pressure: 139/88 Pulse: 63 Respirations: 13 Pulse Ox (%): 96 Assessment And Plan - Plan - Physical Exam General: Alert, In no apparent distress, Oriented x3 HEENT: Atraumatic, Mucous membr. 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 If patient's symptoms p ersist MRI of the brain would be recommended." - Consulted Cardiology and spoke with Dr. Webster - recommendations appreciated - Wean nicardipine drip to SBP < 150 mmHg. Goal BP today is SBP <150 mmHg, without nicardipine drip - Consulted Nephrology and spoke with Dr. Manning - will attempt following regimen - Carvedilol 12.5 mg PO BID - Nifedipine 60 mg PO BID - Chlorthalidone 25 mg PO daily - Ramipril 10 mg PO daily # Suspected Type II Non-ST Segment Elevation Myocardial Infarction (Demand Ischemia) due to above # Moderate Diastolic Dysfunction complicated by Moderate Pulmonary Hypertension - Evaluation thus far: - EKG: without reported STEMI criteria, trend - Serial troponin: 82.5 -> 98.2 -> 126.8 -> 79.9 - Ordered transthoracic echocardiogram = "1. normal left ventricular ejection fraction 55-60% 2. normal wall motion 3. severe left atrial enlargement 4. moderate concentric left ventricular hypertrophy 5. moderate diastolic dysfunction 6. pulmonary hypertension with right ventricular systolic pressure of 50-55 mmHg" - Management plan: - Consult Cardiology and spoke with Dr. Webster - recommendations appreciated - Recommends blood pressure control as outlined above # Suspected Acute Kidney Injury on Chronic Kidney Disease Stage III (due to Hypertensive Nephropathy) - Creatinine = 1.60 -> 1.42 -> 1.40 -> 1.39 (baseline creatinine unknown) - Urinalysis = 2+ protein - Monitor creatinine and urine output - If worsening, obtain renal ultrasound - Renally dose medications # Dyslipidemia - Started atorvastatin 10 mg qHS # Prediabetes # Morbid Obesity - BMI 43.7 kg/m2 - Hgb A1c = 5.9 % - Lifestyle modifications Tyson Ramos M.D.
[2022-05-16] MEDS: NIFEDIPINE XL 60 MG TABLET PO SCH (20:08)
[2022-05-16] MEDS: ATORVASTATIN 10 MG TAB PO SCH (20:08)
--- NOTE | 2022-05-16 22:37 | PN ---
Date of Progress Note: 05/16/2022 Subjective: Seen by bedside. Blood pressure continues to require IV nicardipine infusion. Review of Systems: He does not have any chest pain, shortness of breath, orthopnea, cough, nausea, vomiting, diarrhea. No dysuria, polyuria, or urinary urgency. All other systems reviewed are negative. Physical Examination: Vital Signs: Temperature is 98.4, pulse 64, breathing at 12, blood pressure is 164/91, saturating 98 % on room air. General: Pleasant young male, morbidly obese, no apparent distress. Head and Neck: Pupils are equal, reactive to light. Intact eye movements. No JVD. No cervical lym phadenopathy. Neck is supple. Thyroid is not enlarged. Lungs: Clear to auscultation bilaterally. No rhonchi, rales, or crackles. No accessory muscle use. Heart: Regular rate and rhythm. No extra sounds. Abdomen: Soft, nontender. Bowel sounds positive. No organomegaly. No masses or hernia. No rigidi ty or rebound. Extremities: No edema, clubbing, cyanosis. Intact pulses. Skin: No rashes. Neurologic: Alert, awake, and oriented x3. No acute focal deficits appreciated. Investigations: BUN 23, creatinine 1.39. Assessment/recommendation: 1.Hypertensive crisis. Still requiring IV nicardipine. Altace was introduced today. He is on Core g and nifedipine XL as well as hydralazine and chlorthalidone. Monitor blood pressure closely in the ICU. 2.Elevated troponin due to demand ischemia. Other ischemia workup will be done once his blood press ure is stable. 3.Dyslipidemia. Continue statin. 4.Renal failure. This is chronic and likely his creatinine is at baseline. SR/MODL Voice ID: [id number] Report ID: [id number]
[2022-05-17 04:18] VITALS: O2SAT 100
[2022-05-17 05:49] LABS: Magnesium 2.4 mg/dL (1.6-2.4); Phosphorus 3.8 mg/dL (2.5-4.9); Potassium 3.9 mmol/L (3.5-5.1)
[2022-05-17 06:18] VITALS: BMI 43.8
[2022-05-17] MEDS: ramipriL 5 MG CAP PO SCH (08:12)
[2022-05-17] MEDS: CHLORTHALIDONE 25 MG TAB PO SCH (08:13)
[2022-05-17] MEDS: carvediloL 12.5 MG TAB PO SCH (08:13)
[2022-05-17] MEDS: NIFEDIPINE XL 60 MG TABLET PO SCH (08:13)
[2022-05-17] MEDS: ASPIRIN 81 MG CHEWABLE TABLET PO SCH (08:14)
[2022-05-17] MEDS: ENOXAPARIN 40 MG/0.4 ML SQ SCH (08:15)
--- NOTE | 2022-05-17 09:41 | P.DS ---
Admission Date: 05/14/22 Discharge Date: 05/17/22 Disposition: ROUTINE DISCHARGE Discharge Condition: GOOD Reason for Admission: Elevated blood pressure Consultations: 1. 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 Clem Amanda is a pleasant 46 year old male with a past medical history significant for hypertension who was admitted to the [facility] on 05/14/2022 for hypertensive emergency. He was admitted to the Medicine service. Upon further evaluation, he was found to have a blood pressure up to 228/126 with evidence of endorgan damage (type II NSTEMI, retinopathy, and acute kidney injury). He was admitted to the intensive care unit and started on nicardipine drip. His blood pressure was gradually titrated to systolic blood pressures less than 150 mmHg. Nephrology and Cardiology were consulted due to malignant hypertension. Renal artery ultrasound revealed, "no evidence of hemodynamically significant stenosis within the bilateral renal arteries." Over the course of his hospitalization, oral medications were slowly introduced and his blood pressure improved significantly. His creatinine was slightly worse this morning and this was reviewed with him. I spoke with Dr. Kennedy, who has cleared him for discharge - he will schedule him for a follow-up with repeat labs in the next 2-3 days. On 05/17/2022, he was seen on morning rounds and deemed medically stable for discharge. He was discharged with instructions to schedule follow-up appointments with his PCP, with Nephrology (Dr. Kennedy), with Cardiology (Dr. Webster), and with Ophthalmology (Dr. Hernandez). He was provided prescriptions for atorvastatin, carvedilol, nifedipine, ramipril, and chlorthalidone. He was given the opportunity to ask questions and reported no further questions. Furthermore, all questions were answered to the best of my ability. A copy of this discharge summary will be sent to the above providers to facilitate continuity of care. Today, I personally spent 35 minutes on his case, of which greater than 50% of the time was spent in patient education, counseling, and coordination of care as described above. - Physical Exam General: Alert, In no apparent distress, Oriented x3 HEENT: Atraumatic, Mucous membr. moist/pink, Sclerae nonicteric Neck: JVD not distended Respiratory: Clear to auscultation bilaterally, Normal air movement Cardiovascular: No edema, Regular rate/rhythm, Normal S1 S2, No gallops, No rubs, No murmurs Gastrointestinal: Soft and benign, Non-distended, No tenderness, No rebound, No guarding Musculoskeletal: No clubbing Integumentary: No rashes Neurological: Normal speech, Normal affect Vital Signs/Physical Exam: Temp Pulse Resp BP Pulse Ox 97.1 F 61 18 135/82 94 05/17/22 04:00 05/17/22 09:30 05/17/22 09:30 05/17/22 09:30 05/17/22 09:30 Laboratory Data at Discharge: WBC 10.90 K/uL (4.3-10.9) 05/14/22 02:20 Hgb 14.8 g/dL (13.6-17.9) 05/14/22 02:20 Hct 43.1 % (39.6-49.0) 05/14/22 02:20 Plt Count 138 K/uL (152-406) L 05/14/22 02:20 PT 11.3 SECONDS (9.5-12.5) 05/13/22 15:00 INR 1.03 05/13/22 15:00 Sodium 136 mmol/L (136-145) 05/17/22 05:10 Potassium 3.9 mmol/L (3.5-5.1) 05/17/22 05:10 BUN 28 mg/dL (7-18) H 05/17/22 05:10 Creatinine 1.71 mg/dL (0.70-1.30) H 05/17/22 05:10 Glucose 120 mg/dL (74-106) H 05/17/22 05:10 Phosphorus 3.8 mg/dL (2.5-4.9) 05/17/22 05:10 Magnesium 2.4 mg/dL (1.6-2.4) 05/17/22 05:10 Total Bilirubin 0.6 mg/dL (0.2-1.0) 05/13/22 15:00 AST 24 U/L (15-37) 05/13/22 15:00 ALT 45 U/L (16-61) 05/13/22 15:00 Alkaline Phosphatase 82 U/L (45-117) 05/13/22 15:00 Triglycerides 99 mg/dL (<150) 05/14/22 02:20 Cholesterol 193 mg/dL (<200) 05/14/22 02:20 HDL Cholesterol 39 mg/dL (40-60) L 05/14/22 02:20 Cholesterol/HDL Ratio 4.95 05/14/22 02:20 Home Medications: RX: Aspirin Chewable [Aspirin Chewable*] 81 mg PO DAILY tab.chew 05/17/22 RX: Atorvastatin Calcium [Lipitor*] 10 mg PO BEDTIME #30 tab 05/17/22 RX: Chlorthalidone [Hygroton 25mg Tab*] 25 mg PO DAILY #30 tab 05/17/22 RX: Nifedipine [Procardia Xl] 60 mg PO BID #60 tab 05/17/22 RX: carvediloL [Coreg*] 12.5 mg PO BIDWM #60 tab 05/17/22 ramipriL [Ramipril] 10 mg PO DAILY #60 tab 05/17/22 New Medications: RX: carvediloL [Coreg*] 12.5 mg PO BIDWM #60 tab RX: Chlorthalidone [Hygroton 25mg Tab*] 25 mg PO DAILY #30 tab RX: Atorvastatin Calcium [Lipitor*] 10 mg PO BEDTIME #30 tab RX: Nifedipine [Procardia Xl] 60 mg PO BID #60 tab ramipriL [Ramipril] 10 mg PO DAILY #60 tab Physician Discharge Instructions: PROBLEM: Hypertension GOAL:Keep systolic Blood pressure less than 150 INSTRUCTIONS:Take medications as prescribed. 1. Please call and schedule a follow-up appointment with your PCP in 3-5 days 2. Please call and schedule a follow-up appointment with your Entry Level Programmer (Dr. Kennedy) in 3-5 days 3. Please call and schedule a follow-up appointment with your Cardiology (Dr. Webster) in 5-7 days 4. Please call and schedule a follow-up appointment with your Vice President Lending (Dr. Hernandez) in 1-2 weeks Diet: Renal Activity: Ad aroldo DME DME: Date Ordered: Name of Company: [employer] Services Needed: Name of Company: Date or Referral: IMMUNIZATION Influenza Vaccine Indicated: No Influenza Vaccine Given: No Date Given: Pneumonia Vaccine Indicated: No Pneumonia Vaccine Given: Date Given: Follow up with a Family Medicine Physician of your choice: GABO SILVA, [facility] [address] [place] [address] ERICKSON D O, WENDY [address] [address] PRAMOD SILVA, ELADIO Suarez [address], [address] [place] [address] KENDALL SILVA, ABDIRASHID [address] [place] [address] RAMBO CLARK MD [address], [address] [place] [address] EVE SILVA, DYLAN Mcdonnell [address], [address] [place] [address] CAROL SILVA, BONG K [address], [facility] [place] [address] VAHE DO, NA LY [address], [address] [place] [address] MELINDA CAMPOSP, MAGGIE K [address], [address] [place] [address] RADHA BISHOP, LEEANN [address], [address] [place] [address] Follow up with a Entry Level Programmer of your choice: PIPPA KENNEDY DO [address] [place] [address] Diet: Renal Activity: Ad aroldo Followup: Pippa Kennedy DO [ACTIVE - CAN ADMIT] - Poncho Hernandez MD [OUTSIDE PHYSICIAN] - NONE,NONE [Primary Care Provider] - Venu Webster MD [ACTIVE - CAN ADMIT] - Time spent managing pt's care (in minutes): 35
[2022-05-17 10:56] VITALS: BP 135/82; TEMP 97.7
[2022-05-17] MEDS ORDERED: BUMETANIDE 1 MG TABLET PO ONE (16:00)
== END 2022-05-17 10:15 | disposition home or self-care (01) | DRG 281 ==
LOC: ER 14:16 → ERHOLD 17:17 → OBSVTOIN 05-14 12:23 → 3RD-ICU 05-14 21:19
PROVIDERS: ADMIT Internal Medicine; ATTEND Internal Medicine
DX: I16.1 Hypertensive emergency (principal); I21.A1 Myocardial infarction type 2; I50.32 Chronic diastolic (congestive) heart failure; Z68.41 Body mass index [BMI] 40.0-44.9, adult; N17.9 Acute kidney failure, unspecified; I13.0 Hypertensive heart and chronic kidney disease with heart failure and stage 1 through stage 4 chronic kidney disease, or unspecified chronic kidney disease; N18.31 Chronic kidney disease, stage 3a; E66.01 Morbid (severe) obesity due to excess calories; I27.20 Pulmonary hypertension, unspecified; D69.6 Thrombocytopenia, unspecified; E78.5 Hyperlipidemia, unspecified; H35.031 Hypertensive retinopathy, right eye; R73.03 Prediabetes; R73.9 Hyperglycemia, unspecified; Z79.82 Long term (current) use of aspirin; Z28.310 Unvaccinated for COVID-19; Z20.822 Contact with and (suspected) exposure to COVID-19
CPT/HCPCS: 36415; 70450; 80048; 80061; 80076; 81001; 82550; 83036; 83735; 83880; 84100; 84439; 84443; 84484; 85025; 85610; 87811; 93005; 93306; 93975; 96374; 99285; G0378; J1650; J7050